=== PATIENT | male | born 1940 | race Caucasian/White ===

== ENCOUNTER 2018-10-23 15:53 | Emergency (ER) | payer SELFPAY ==
[2018-10-23 16:06] VITALS: BP 145/73; PULSE 88; TEMP 98; BMI 38.5
--- NOTE | 2018-10-23 16:09 | PDOC ---
Rapid Medical Evaluation Chief Complaint: Back Pain Time Seen by Provider: 10/23/18 16:04 Medical Evaluation: Allergies Allergy/AdvReac Type Severity Reaction Status Date / Time No Known Allergies Allergy Verified 10/23/18 16:04 10/23/18 16:04 I have performed a brief in-person evaluation of this patient. The patient presents with a chief complaint of: 78 yo M w/ no sig PMHx comes in c/o low back pain worse on the L side, which radiates down the LLE and is associated with occasional numbness and tingling. Pt was trying to close a window yesterday from his bed, and fell on the floor. Denies syncope, no LOC, no head trauma/injury, no CP/SOB/dizziness I have ordered the following: LS xray The patient will proceed to the ED for further evaluation. Discharge Disposition - Diagnosis Back pain Qualifiers: Back pain location: low back pain Chronicity: unspecified Back pain laterality : unspecified Sciatica presence: unspecified whether sciatica present Qualified Code(s): M54.5 - Low back pain - Referrals - Patient Instructions - Post Discharge Activity
[2018-10-23] MEDS ORDERED: KETOROLAC TROMETHAMINE 30 MG/1 ML VIAL IM ONE (16:17)
[2018-10-23] MEDS ORDERED: KETOROLAC TROMETHAMINE 30 MG/1 ML VIAL ONE (16:19)
--- NOTE | 2018-10-23 16:31 | PDOC ---
History of Present Illness - General Chief Complaint: Back Pain Stated Complaint: LOWER BACK PAIN Time Seen by Provider: 10/23/18 16:04 History Source: Patient Exam Limitations: Clinical Condition - History of Present Illness Initial Comments: 10/23/18 16:18 Morbid obese patient with no significant past medical history present with complaint of left hip and lower back pain radiating to left thigh area for a month. Patient reported being seen at the [facility] a week ago and blood work and x-ray of bilateral knees done but no workup was done for left hip or lower back pain. Patient have follow-up appointment [facility] in 5 days for x- ray and blood work follow-up. Patient reported taking Tylenol for pain without improvement. Patient reported feeling weakness in bilateral legs yesterday and falling due to legs giving out on the wooden floor in the gluteal on the floor. Denies hitting head of loss of consciousness. Denies any trauma or lower back Occurred: reports: other (1 month) Past History - Past Medical History Allergies/Adverse Reactions: Allergies Allergy/AdvReac Type Severity Reaction Status Date / Time No Known Allergies Allergy Verified 10/23/18 16:04 Home Medications: Ambulatory Orders Methocarbamol [Robaxin -] 500 mg PO BID #14 tablet 10/23/18 Naproxen 500 mg PO BID PRN #20 tablet 10/23/18 COPD: No - Surgical History Abdominal Surgery: Yes (HERNIA REPAIR) - Immunization History Immunization Up to Date: No - Suicide/Smoking/Psychosocial Hx Smoking History: Never smoked Hx Alcohol Use: No Drug/Substance Use Hx: No Review of Systems - Review of Systems Able to Perform ROS?: Yes Is the patient limited Sami proficient: No Constitutional: No: Malaise, Weakness HEENTM: No: Symptoms Reported Respiratory: No: Symptoms reported Cardiac (ROS): No: Symptoms Reported ABD/GI: No: Symptoms Reported Musculoskeletal: Yes: Symptoms Reported, See HPI, Joint Pain (left hip), Muscle Pain (left lower back). No: Muscle Weakness Neurological: Yes: Symptoms reported, Tingling (intermittent tingling sensation to left LE). No: Numbness, Paresthesia All Other Systems: Reviewed and Negative *Physical Exam - Vital Signs Last Vital Signs Temp Pulse Resp BP Pulse Ox 98.0 F 88 18 145/73 100 10/23/18 16:04 10/23/18 16:04 10/23/18 16:04 10/23/18 16:04 10/23/18 16:04 - Physical Exam Comments: 10/23/18 16:33 GENERAL: Well developed, well nourished. Awake and alert in mild acute distress. PULMONARY: No evidence of respiratory distress. MUSCULOSKELETAL : no tenderness over posterior paravertebral muscle lumbosacral spine on bilateral sides. No tenderness to left hip. No step-off of left lateral hip .No bony deformities SKIN: Warm and dry. Normal capillary refill. NEUROLOGICAL: Alert, awake, appropriate. No motor deficits in the lower extremities. Gait is normal without ataxia. PSYCHIATRIC: Cooperative. Good eye contact. Appropriate mood and affect. General Appearance: Yes: Nourished, Appropriately Dressed, Mild Distress ED Treatment Course - RADIOLOGY Radiology Studies Ordered: Category Date Time Status HIP & PELVIS-LEFT [RAD] Stat Radiology 10/23/18 16:17 Ordered Medical Decision Making - Medical Decision Making 10/23/18 16:31 Morbid obese patient with no significant past medical history present with complaint of left hip and lower back pain radiating to left thigh area for a month. Patient reported being seen at the [facility] a week ago and blood work and x-ray of bilateral knees done but no workup was done for left hip or lower back pain. Patient have follow-up appointment [facility] in 5 days for x- ray and blood work follow-up. Patient reported taking Tylenol for pain without improvement. Patient reported feeling weakness in bilateral legs yesterday and falling due to legs giving out on the wooden floor in the gluteal on the floor. Denies hitting head of loss of consciousness. Denies any trauma or lower back No tenderness to lumbosacral area or hip elicited on exam. Patient reported pain only comes on when getting up from sitting position. Toradol 30 mg IM ordered for pain.. X-ray of lumbosacral and left hip ordered to rule out acute pathology. Treat based on imaging results 10/23/18 17:16 X-ray of lumbosacral and left hip shows no acute pathology. X-ray shows mild arthritis changes patient symptoms likely caused by arthritis and being overweight. Patient stable for discharge on naproxen when necessary for pain with Robaxin as needed for spasm with orthopedist follow-up. *DC/Admit/Observation/Transfer Diagnosis at time of Disposition: Arthritis Back pain Qualifiers: Back pain location: low back pain Chronicity: unspecified Back pain laterality : unspecified Sciatica presence: unspecified whether sciatica present Qualified Code(s): M54.5 - Low back pain - Discharge Dispostion Disposition: HOME Condition at time of disposition: Stable Decision to Admit order: No - Prescriptions Prescriptions: Methocarbamol [Robaxin -] 500 mg PO BID #14 tablet Naproxen 500 mg PO BID PRN #20 tablet PRN Reason: Back Pain - Referrals Referrals: Kirt Underwood DO [Staff Physician] - - Patient Instructions Printed Discharge Instructions: DI for Osteoarthritis Additional Instructions: X-rays of lower back and left hip shows arthritis changes with no acute fracture or dislocation. Your pain symptoms is likely caused by arthritis. Take prescribed medications as needed for pain. Follow-up with referred orthopedics if no improvement in 4 days - Post Discharge Activity
== END 2018-10-23 17:13 | disposition home or self-care (01) ==
LOC: JERFT 15:53
PROC: 3E0233Z Introduction of Anti-inflammatory into Muscle, Percutaneous Approach (ICD-10-PCS; principal; 2018-10-23)
DX: M13.852 Other specified arthritis, left hip (principal); M46.86 Other specified inflammatory spondylopathies, lumbar region; M54.5 Low back pain
CPT/HCPCS: 72100-TC-FY; 73523-TC-FY; 99282-25